=== PATIENT | male | born 2000 | race Hispanic/Latino ===

== ENCOUNTER 2021-01-26 18:49 | Emergency (ER) | payer OTHER ==
[~2021-01-26] VITALS: Ht 177.8 cm; Wt 74.1 kg
[2021-01-26] MEDS ORDERED: BENA25CA4 PO (18:57)
[2021-01-26] MEDS ORDERED: IBUP200C89 PO (18:57)
[2021-01-26] MEDS ORDERED: PSEU30TA85 PO (18:57)
[2021-01-26] MEDS ORDERED: NS 1,000 ML IV ONE (22:25)
[2021-01-26] MEDS ORDERED: ONDANSETRON 4MG/2ML VIAL IV ONE (22:25)
[2021-01-26 22:45] LABS: BASO % 0.3 % (0.0-1.0); EOS # 0.6 10^3/uL (0.0-0.5); EOS % 8.5 % (0.0-3.0); HEMATOCRIT 43.7 % (42.0-52.0); HEMOGLOBIN 14.6 g/dl (13.5-17.5); LYMPH # 2.4 10^3/uL (1.5-5.0); LYMPH % 34.6 % (24.0-44.0); MEAN CORPUSCULAR HEMOGLOBIN 31.8 pg (27.0-33.0); MEAN CORPUSCULAR HGB CONC 33.4 g/dl (32.0-36.5); MEAN CORPUSCULAR VOLUME 95.2 fl (80.0-96.0); MONO # 0.7 10^3/uL (0.0-0.8); MONO % 9.3 % (2.0-8.0); NEUTROPHILS # 3.3 10^3/uL (1.5-8.5); PLATELET COUNT, AUTOMATED 239 10^3/uL (150-450); RED BLOOD COUNT 4.59 10^6/uL (4.30-6.10); WHITE BLOOD COUNT 7.1 10^3/uL (4.0-10.0)
[2021-01-26] MEDS ORDERED: KETOROLAC 30 MG/ML 1ML VIAL IV ONE (23:00)
[2021-01-26] MEDS ORDERED: PSEU120T19 PO (23:29)
[2021-01-26] MEDS ORDERED: ALLE10TA62 PO (23:29)
[2021-01-26] MEDS ORDERED: FLON1SPR NARES (23:29)
[2021-01-27] VITALS: BP 120/70
== END 2021-01-27 00:03 | disposition home or self-care (01) ==
LOC: M ED 18:49
DX: R55 Syncope and collapse (principal); J02.9 Acute pharyngitis, unspecified; R51.9 Headache, unspecified; R09.81 Nasal congestion; Z79.899 Other long term (current) drug therapy
CPT/HCPCS: 80047; 85025; 96361; 96374; 96375; 99284; J1885; J2405